=== PATIENT | female | born 1965 | race Caucasian/White ===

== ENCOUNTER 2016-07-26 17:56 | Emergency (ER) | payer MEDICAID ==
--- NOTE | 2016-07-26 18:50 | Emergency Department Record ---
History of Present Illness - General Stated complaint: MOUTH PAIN Time Seen by Provider: 07/26/16 18:37 Source: Patient Mode of Arrival: Ambulatory Limitations: No limitations - History of Present Illness Initial comments: 50 yo female presents to ED with a CC of dental pain to the left upper jaw for the past several days. Patient reports that the tooth is cracked, and she is scheduled for extraction on char 14. Patient reports "I just need something for pain to get me through tonight". Patient denies gingival swelling or recent injury/trauma. MD complaint: Tooth pain Onset/Timin -: Days(s) Location: Tooth # 1 - dental pain/fracture Severity: Moderate Quality: Aching Consistency: Constant Improves with: None Context-Epistaxis: Recent surgery/procedure, History of similar Context- Dental: History of dental caries - Related Data Home Medications Medication Instructions Recorded Confirmed Last Taken Melatonin/Pyridoxine HCl (B6) 3 mg PO QHS tab 03/21/15 04/26/16 04/26/16 [Melatonin 5 mg Tablet] Insulin Regular, Human [Humulin R] 100 unit SQ BID 01/29/16 04/26/16 04/26/16 Previous Rx's Medication Instructions Recorded Blood-Glucose Meter [Contour Link] 1 each QIDACHS #1 kit 12/04/14 Benzonatate [Tessalon] 1 cap PO Q8H PRN #15 cap 04/26/16 Ondansetron [Zofran Odt] 4 mg SL .Q4-6H PRN #12 tab.rapdis 04/26/16 Allergies Allergy/AdvReac Type Severity Reaction Status Date / Time No Known Drug Allergies Allergy Verified 04/26/16 14:26 Review of Systems Constitutional: Denies: Chills, Fever, Malaise, Night sweats Eyes: Denies: Eye discharge, Eye pain ENT: Reports: Dental pain. Denies: Congestion, Ear pain Respiratory: Denies: Cough, Dyspnea Cardiovascular: Denies: Chest pain, Dyspnea on exertion Endocrine: Denies: Fatigue, Heat or cold intolerance Gastrointestinal: Denies: Abdominal pain, Nausea, Vomiting Genitourinary: Denies: Incontinence, Retention Musculoskeletal: Denies: Arthralgia, Back pain Skin: Denies: Bruising, Change in color Neurological: Denies: Abnormal gait, Headache Psychiatric: Denies: Anxiety Hematological/Lymphatic: Denies: Anemia, Blood Clots Past Medical History - SOCIAL HISTORY Smoking Status: Former smoker Drug Use: None - RESPIRATORY Hx Respiratory Disorders: Yes Hx Bronchitis: Yes 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 - CARDIOVASCULAR Hx Cardio Disorders: Yes Hx Hypertension: Yes - NEURO Hx Neuro Disorders: Yes Hx Dizziness: Yes Hx Headaches: Yes Hx Seizures: Yes Comment:: concussion, [place] Palsy - GI Hx GI Disorders: Yes Hx Reflux: Yes Hx Liver Disease: Yes ("cirrhosis") Comment:: stewart's esophagus - Hx Genitourinary Disorders: Yes Hx Bladder Problem: Yes (stress inc.) - ENDOCRINE Hx Endocrine Disorders: Yes Hx Diabetes: Yes Hx Thyroid Disease: No - MUSCULOSKELETAL Hx Musculoskeletal Disorders: Yes Hx Arthritis: Yes (osteo) Comment:: sarcoidosis - PSYCH Hx Psych Problems: Yes Hx Anxiety: Yes Hx Depression: Yes Comment:: bi polar - HEMATOLOGY/ONCOLOGY Hx Hematology/Oncology Disorders: Yes Hx Cancer: Yes (Uterine Cancer) Hx Chemotherapy: No Hx Radiation Therapy: No Family Medical History Hx Alcohol Use: Father, Mother, Brother/Sister Hx Anxiety: Mother Hx Cancer: Grandparents Hx Depression: Father, Mother, Brother/Sister, Grandparents Hx Diabetes: Father, Grandparents Hx Heart Disease: Father Hx HTN: Father Hx Liver Disease: Father Physical Exam - General General Appearance: Alert, Oriented x3, Cooperative, No acute distress Limitations: No limitations - Head Head exam: Atraumatic, Normocephalic, Normal inspection Head exam detail: negative: Abrasion, Contusion, Acosta's sign, General tenderness, Hematoma, Laceration - Eye Eye exam: Normal appearance. negative: Conjunctival injection, Periorbital swelling, Periorbital tenderness, Scleral icterus - ENT Ear exam: negative: Auricular hematoma, Auricular trauma Nasal Exam: negative: Active bleeding, Discharge, Dried blood, Foreign body, Sinus tenderness Mouth exam: negative: Drooling, Laceration, Muffled voice, Tongue elevation Teeth exam: Dental caries, Dental tenderness #. negative: Gingival enlargement Throat exam: negative: R peritonsillar mass, L peritonsillar mass Image of Mouth/Teeth: 1 - TTP on examination, posterior fracture present? - Neck Neck exam: Normal inspection. negative: Meningismus, Tenderness - Respiratory Respiratory exam: Normal lung sounds bilaterally. negative: Respiratory distress, Rhonchi, Stridor, Wheezes - Cardiovascular Cardiovascular Exam: Regular rate, Normal rhythm, Normal heart sounds - GI/Abdominal GI/Abdominal exam: Soft. negative: Organomegaly, Rebound, Rigid, Tenderness - Rectal Rectal exam: Deferred - exam: Deferred - Extremities Extremities exam: Normal inspection. negative: Pedal edema, Tenderness - Back Back exam: Denies: CVA tenderness (R), CVA tenderness (L) - Neurological Neurological exam: Alert, Normal gait, Oriented X3 - Psychiatric Psychiatric exam: Normal affect, Normal mood - Skin Skin exam: Normal color. negative: Abrasion Type of lesion: negative: abrasion Course Vital Signs 07/26/16 18:35 Temperature 98.5 F Pulse Rate [ 95 H Pulse Ox Probe] Respiratory 26 H Rate Blood Pressure 108/68 [Left Arm] Pulse Ox 98 Procedures - Nerve Block Consent Obtained: Verbal consent Time Out Performed: Yes Local Anesthetic Used: Lidocaine 1% Amount of anesthesia used: 2 Side: Right Intraoral Nerve Block: Supraperiosteal Procedure Successful: Yes Complications: None Patient Tolerated Procedure: Good Disposition Disposition: Discharge Clinical Impression: Dental caries Disposition: Home, Self-Care Condition: (2) Stable Instructions: Toothache (ED) Additional Instructions: Return to ED if your symptoms worsen or if you have any concerns. Follow-up with [facility] as scheduled July 29. Time of Disposition: 18:50
== END 2016-07-26 19:02 | disposition home or self-care (01) ==
LOC: ER 17:56
DX: K02.9 Dental caries, unspecified (principal)
CPT/HCPCS: 64400; 99283

== ENCOUNTER 2016-07-27 21:02 | Emergency (ER) | payer MEDICAID ==
--- NOTE | 2016-07-27 22:01 | Emergency Department Record ---
History of Present Illness - General Chief complaint: Dental Stated complaint: tooth pain Time Seen by Provider: 07/27/16 21:55 Source: Patient Mode of Arrival: Ambulatory Limitations: No limitations - History of Present Illness Initial comments: 50 yo female returns to ED for re-evaluation of dental pain symptoms to the right upper dental region. Patient is requesting another dental nerve block. Patient reports that she is scheduled for dental extraction Wednesday, and is requesting some relief in the form a nerve block to assist until she can see her dentist. MD complaint: Tooth pain Onset/Timin -: Days(s) Location: Tooth # 1 - Dental pain Severity: Moderate Severity scale (1-10): 8 Quality: Aching Consistency: Constant Improves with: Rest Worsens with: Eating, Swallowing Context- Dental: History of dental caries, Poor dental care - Related Data Home Medications Medication Instructions Recorded Confirmed Last Taken Melatonin/Pyridoxine HCl (B6) 3 mg PO QHS tab 03/21/15 07/27/16 07/26/16 [Melatonin 5 mg Tablet] Insulin Regular, Human [Humulin R] 100 unit SQ BID 01/29/16 07/27/16 07/26/16 Previous Rx's Medication Instructions Recorded Blood-Glucose Meter [Contour Link] 1 each QIDACHS #1 kit 12/04/14 Benzonatate [Tessalon] 1 cap PO Q8H PRN #15 cap 04/26/16 Ondansetron [Zofran Odt] 4 mg SL .Q4-6H PRN #12 tab.rapdis 04/26/16 Allergies Allergy/AdvReac Type Severity Reaction Status Date / Time No Known Drug Allergies Allergy Verified 07/27/16 21:06 Travel Screening - Travel/Exposure Within Last 30 Days Have you traveled within the last 30 days?: No - Travel/Exposure Within Last Year Have you traveled outside the [place] in the last year?: No - Additonal Travel Details Have you been exposed to anyone with a communicable illness?: No - Travel Symptoms Symptom Screening: None Review of Systems Constitutional: Denies: Chills, Fever, Malaise, Night sweats Eyes: Denies: Eye discharge, Eye pain ENT: Reports: Dental pain. Denies: Congestion, Ear pain, Epistaxis Respiratory: Denies: Cough, Dyspnea Cardiovascular: Denies: Chest pain, Dyspnea on exertion Endocrine: Denies: Fatigue, Heat or cold intolerance Gastrointestinal: Denies: Abdominal pain, Nausea, Vomiting Genitourinary: Denies: Dysuria, Frequency Musculoskeletal: Denies: Arthralgia, Back pain Skin: Denies: Bruising, Change in color Neurological: Denies: Abnormal gait, Confusion, Headache, Seizure Psychiatric: Denies: Anxiety Hematological/Lymphatic: Denies: Anemia, Blood Clots Past Medical History - SOCIAL HISTORY Smoking Status: Current some day smoker Alcohol Use: None Drug Use: Heavy Drug Use Detail:: Marijuana - RESPIRATORY Hx Respiratory Disorders: Yes Hx Bronchitis: Yes 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 - CARDIOVASCULAR Hx Cardio Disorders: Yes Hx Hypertension: Yes - NEURO Hx Neuro Disorders: Yes Hx Dizziness: Yes Hx Headaches: Yes Hx Seizures: Yes Comment:: concussion, [place] Palsy - GI Hx GI Disorders: Yes Hx Reflux: Yes Hx Liver Disease: Yes ("cirrhosis") Comment:: stewart's esophagus - Hx Genitourinary Disorders: Yes Hx Bladder Problem: Yes (stress inc.) - ENDOCRINE Hx Endocrine Disorders: Yes Hx Diabetes: Yes Hx Thyroid Disease: No - MUSCULOSKELETAL Hx Musculoskeletal Disorders: Yes Hx Arthritis: Yes (osteo) Comment:: sarcoidosis - PSYCH Hx Psych Problems: Yes Hx Anxiety: Yes Hx Depression: Yes Comment:: bi polar - HEMATOLOGY/ONCOLOGY Hx Hematology/Oncology Disorders: Yes Hx Cancer: Yes (Uterine Cancer) Hx Chemotherapy: No Hx Radiation Therapy: No Family Medical History Any Significant Family History?: No Hx Alcohol Use: Father, Mother, Brother/Sister Hx Anxiety: Mother Hx Cancer: Grandparents Hx Depression: Father, Mother, Brother/Sister, Grandparents Hx Diabetes: Father, Grandparents Hx Heart Disease: Father Hx HTN: Father Hx Liver Disease: Father Physical Exam - General General Appearance: Alert, Oriented x3, Cooperative, No acute distress (talking on her mobile phone upon entering the room, well appearin in no acute distress) Limitations: No limitations - Head Head exam: Atraumatic, Normocephalic, Normal inspection Head exam detail: negative: Abrasion, Contusion, Acosta's sign, General tenderness, Hematoma, Laceration - Eye Eye exam: Normal appearance. negative: Conjunctival injection, Periorbital swelling, Periorbital tenderness, Scleral icterus - ENT Ear exam: negative: Auricular hematoma, Auricular trauma Nasal Exam: negative: Active bleeding, Discharge, Dried blood, Foreign body Mouth exam: negative: Drooling, Laceration, Muffled voice, Tongue elevation Teeth exam: Dental caries, Dental tenderness # Throat exam: negative: Tonsillar erythema, R peritonsillar mass, L peritonsillar mass Image of Mouth/Teeth: 1 - Dental tenderness on examination, no gingival STS to suggest abscess - Neck Neck exam: Normal inspection. negative: Meningismus, Tenderness - Respiratory Respiratory exam: Normal lung sounds bilaterally. negative: Rales, Respiratory distress, Rhonchi, Stridor - Cardiovascular Cardiovascular Exam: Regular rate, Normal rhythm, Normal heart sounds - GI/Abdominal GI/Abdominal exam: Soft. negative: Rebound, Rigid - Rectal Rectal exam: Deferred - exam: Deferred - Extremities Extremities exam: Normal inspection. negative: Calf tenderness, Pedal edema, Tenderness - Back Back exam: Denies: CVA tenderness (R), CVA tenderness (L) - Neurological Neurological exam: Alert, Normal gait, Oriented X3 - Psychiatric Psychiatric exam: Normal affect, Normal mood - Skin Skin exam: Normal color. negative: Abrasion Type of lesion: negative: abrasion Course Vital Signs 07/27/16 21:06 Pulse Rate 90 Respiratory 18 Rate Blood Pressure 127/81 Pulse Ox 98 - Reevaluation(s) Reevaluation #1: 07/27/16 21:59 Dental block performed, will re-evaluate in 10-15 minutes to determine efficacy. Reevaluation #2: 07/27/16 22:18 Patient reassessed and reports significant improvement in her dental pain symptoms, appears stable for discharge at this time. Disposition Disposition: Discharge Clinical Impression: Dental caries Disposition: Home, Self-Care Condition: (2) Stable Instructions: Dental Abscess (ED) Additional Instructions: Return to ED if your symptoms worsen or if you have any concerns. Follow-up with your dentist in 2 days as scheduled. Forms: Patient Portal Access Time of Disposition: 22:01
== END 2016-07-27 22:24 | disposition home or self-care (01) ==
LOC: ER 21:02
DX: K02.9 Dental caries, unspecified (principal)
CPT/HCPCS: 64400; 99283

== ENCOUNTER 2016-08-05 23:52 | Emergency (ER) | payer MEDICAID ==
--- NOTE | 2016-08-06 00:22 | Emergency Department Record ---
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 Patient reports right sided facial weakness and difficultly blinking that began around 5 hours ago. Patient denies weakness to the extremities, numbness, tingling, or difficulty ambulating. Patient denies slurred speech symptoms. Patient reports similar symptoms 2 years ago as well. Onset/Timin -: Hour(s) Location: Face Radiation: Non-Radiating Consistency: Constant Improves with: None Worsens with: None Associated Symptoms: Denies other symptoms - [place] Coma Scale Eye Response: (4) Open spontaneously Motor Response: (6) Obeys commands Verbal Response: (5) Oriented [place] Total: 15 - Related Data Home Medications Medication Instructions Recorded Confirmed Last Taken Melatonin/Pyridoxine HCl (B6) 3 mg PO QHS tab 03/21/15 08/06/16 07/26/16 [Melatonin 5 mg Tablet] Insulin Regular, Human [Humulin R] 100 unit SQ QAM 01/29/16 08/06/16 07/26/16 Amoxicillin [Amoxicillin] 500 mg PO ASDIR 08/06/16 08/06/16 Unknown Insulin Regular, Human [Humulin R] 50 unit SQ QPM 08/06/16 08/06/16 Unknown Previous Rx's Medication Instructions Recorded Blood-Glucose Meter [Contour Link] 1 each QIDACHS #1 kit 12/04/14 Ondansetron [Zofran Odt] 4 mg SL .Q4-6H PRN #12 tab.rapdis 04/26/16 Prednisone [Prednisone 20Mg] 20 mg PO TID #20 tab 08/06/16 Allergies Allergy/AdvReac Type Severity Reaction Status Date / Time ibuprofen [From Motrin] AdvReac VOMITING Verified 08/06/16 00:02 Travel Screening - Travel/Exposure Within Last 30 Days Have you traveled within the last 30 days?: No - Travel/Exposure Within Last Year Have you traveled outside the [place] in the last year?: No - Additonal Travel Details Have you been exposed to anyone with a communicable illness?: No - Travel Symptoms Symptom Screening: None Review of Systems Constitutional: Denies: Chills, Fever, Malaise, Night sweats Eyes: Denies: Eye discharge, Eye pain ENT: Denies: Congestion, Ear pain, Epistaxis Respiratory: Denies: Cough, Dyspnea Cardiovascular: Denies: Chest pain, Dyspnea on exertion Endocrine: Denies: Fatigue, Heat or cold intolerance Gastrointestinal: Denies: Abdominal pain, Nausea, Vomiting Genitourinary: Denies: Incontinence, Retention Musculoskeletal: Denies: Arthralgia, Back pain Skin: Denies: Bruising, Change in color Neurological: Reports: Weakness (right face). 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 - CARDIOVASCULAR Hx Cardio Disorders: Yes Hx Hypertension: Yes - NEURO Hx Neuro Disorders: Yes Hx Dizziness: Yes Hx Headaches: Yes Hx Seizures: Yes Comment:: concussion, [place] Palsy - GI Hx GI Disorders: Yes Hx Reflux: Yes Hx Liver Disease: Yes ("cirrhosis") Comment:: stewart's esophagus - Hx Genitourinary Disorders: Yes Hx Bladder Problem: Yes (stress inc.) - ENDOCRINE Hx Endocrine Disorders: Yes Hx Diabetes: Yes Hx Thyroid Disease: No - MUSCULOSKELETAL Hx Musculoskeletal Disorders: Yes Hx Arthritis: Yes (osteo) Comment:: sarcoidosis - PSYCH Hx Psych Problems: Yes Hx Anxiety: Yes Hx Depression: Yes Comment:: bi polar - HEMATOLOGY/ONCOLOGY Hx Hematology/Oncology Disorders: Yes Hx Cancer: Yes (Uterine Cancer) Hx Chemotherapy: No Hx Radiation Therapy: No Family Medical History Any Significant Family History?: Yes Hx Alcohol Use: Father, Mother, Brother/Sister Hx Anxiety: Mother Hx Cancer: Grandparents Hx Depression: Father, Mother, Brother/Sister, Grandparents Hx Diabetes: Father, Grandparents Hx Heart Disease: Father Hx HTN: Father Hx Liver Disease: Father Physical Exam - General General Appearance: Alert, Oriented x3, Cooperative, No acute distress Limitations: No limitations - Head Head exam: Atraumatic, Normocephalic, Normal inspection Head exam detail: negative: Abrasion, Contusion, Acosta's sign, General tenderness, Hematoma, Laceration - Eye Eye exam: Normal appearance. negative: Conjunctival injection, Periorbital swelling, Periorbital tenderness, Scleral icterus - ENT Ear exam: negative: Auricular hematoma, Auricular trauma Nasal Exam: negative: Active bleeding, Discharge, Dried blood, Foreign body Mouth exam: negative: Drooling, Laceration, Muffled voice, Tongue elevation - Neck Neck exam: Normal inspection. negative: Meningismus, Tenderness - Respiratory Respiratory exam: Normal lung sounds bilaterally. negative: Rales, Respiratory distress, Rhonchi, Stridor - Cardiovascular Cardiovascular Exam: Regular rate, Normal rhythm, Normal heart sounds - GI/Abdominal GI/Abdominal exam: Soft. negative: Rebound, Rigid, Tenderness - Rectal Rectal exam: Deferred - exam: Deferred - Extremities Extremities exam: Normal inspection. negative: Calf tenderness, Pedal edema, Tenderness - Back Back exam: Denies: CVA tenderness (R), CVA tenderness (L) - Neurological Neurological exam: Alert, Normal gait, Oriented X3, Other (Mild facial paralysis of the right face involving the forehead) - Psychiatric Psychiatric exam: Normal affect, Normal mood - Skin Skin exam: Normal color. negative: Abrasion Type of lesion: negative: abrasion Course Vital Signs 08/05/16 23:54 Temperature 97.8 F Pulse Rate 83 Respiratory 20 Rate Blood Pressure 126/76 Pulse Ox 98 - Reevaluation(s) Reevaluation #1: 08/06/16 00:17 Patient seen and examined, reveals moderate right sided facial paralysis involving the patient's forehead. Interactive Art Director strength 5/5 bilaterally, plantar flexion/dorsiflexion 5/5 and is symmetric bilaterally, no drift on examination. 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 Will prescribe Prednisone for treatment of her symptoms with instructions for follow-up. Disposition Disposition: Discharge Clinical Impression: Newsome's palsy Disposition: Home, Self-Care Condition: (2) Stable Instructions: Newsome Palsy (ED) Additional Instructions: Return to ED if your symptoms worsen or if you have any concerns. Prednisone as directed. Follow-up with your family doctor in 3-5 days as directed. Prescriptions: Prednisone [Prednisone 20Mg] 20 mg PO TID #20 tab Forms: Patient Portal Access Time of Disposition: 00:23
[2016-08-06] MEDS ORDERED: PREDNISONE 20 MG TAB PO ONE (00:23)
== END 2016-08-06 00:35 | disposition home or self-care (01) ==
LOC: ER 23:52
DX: G51.0 Bell's palsy (principal)
CPT/HCPCS: 99282; J7512

== ENCOUNTER 2016-12-26 11:42 | Emergency (ER) | payer MEDICAID ==
--- NOTE | 2016-12-26 11:56 | Emergency Department Record ---
History of Present Illness - General Chief complaint: ENT Stated complaint: SORE THROAT,CHEST TIGHTNESS Time Seen by Provider: 12/26/16 11:55 Source: Patient Mode of Arrival: Ambulatory - History of Present Illness Initial comments: The patient awakened with a sore throat today. She has not been feeling well and thinks that her MRSA is returning beause she has a few spots on her breast, axilla, and groin. She would like clindamycin for this as this is what resolvedf it last time when she had a abscess on her leg with MRSA. She enies abscesses today, no f, cough, rashes. Onset/Timin -: Days(s) Severity: Moderate Severity scale (1-10): 7 Quality: Aching Consistency: Constant Improves with: None Worsens with: None Associated Symptoms: Sore throat - Related Data Home Medications Medication Instructions Recorded Confirmed Last Taken Dicyclomine HCl 20 mg PO TID 12/26/16 12/26/16 Unknown Previous Rx's Medication Instructions Recorded Clindamycin HCl 450 mg PO TID #90 capsule 12/26/16 Allergies Allergy/AdvReac Type Severity Reaction Status Date / Time ibuprofen [From Motrin] AdvReac VOMITING Verified 08/06/16 00:02 Travel Screening - Travel/Exposure Within Last 30 Days Have you traveled within the last 30 days?: No Review of Systems Reviewed: No additional complaints except as noted below Constitutional: Reports: As per HPI. Denies: Chills, Fever, Malaise, Night sweats, Weakness, Weight change Eyes: Reports: As per HPI. Denies: Eye discharge, Eye pain, Photophobia, Vision change ENT: Reports: As per HPI. Denies: Congestion, Dental pain, Ear pain, Epistaxis , Hearing loss, Throat pain Respiratory: Reports: As per HPI. Denies: Cough, Dyspnea, Hemoptysis, Stridor, Wheezes Cardiovascular: Reports: As per HPI. Denies: Arrhythmia, Chest pain, Dyspnea on exertion, Edema, Murmurs, Orthopnea, Palpitations, Paroxysmal nocturnal dyspnea, Rheumatic Fever, Syncope Endocrine: Reports: As per HPI. Denies: Fatigue, Heat or cold intolerance, Polydipsia, Polyuria Gastrointestinal: Reports: As per HPI. Denies: Abdominal pain, Constipation, Diarrhea, Hematemesis, Hematochezia, Melena, Nausea, Vomiting Genitourinary: Reports: As per HPI. Denies: Abnormal menses, Discharge, Dyspareunia, Dysuria, Frequency, Hematuria, Incontinence, Retention, Urgency Musculoskeletal: Reports: As per HPI. Denies: Arthralgia, Back pain, Gout, Joint swelling, Myalgia, Neck pain Skin: Reports: As per HPI. Denies: Bruising, Change in color, Change in hair/ nails, Lesions, Pruritus, Rash Neurological: Reports: As per HPI. Denies: Abnormal gait, Confusion, Headache, Numbness, Paresthesias, Seizure, Tingling, Tremors, Vertigo, Weakness Psychiatric: Reports: As per HPI. Denies: Anxiety, Auditory hallucinations, Depression, Homicidal thoughts, Suicidal thoughts, Visual hallucinations Hematological/Lymphatic: Reports: As per HPI. 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 - CARDIOVASCULAR Hx Cardio Disorders: Yes Hx Hypertension: Yes - NEURO Hx Neuro Disorders: Yes Hx Dizziness: Yes Hx Headaches: Yes Hx Seizures: Yes Comment:: concussion, [place] Palsy - GI Hx GI Disorders: Yes Hx Reflux: Yes Hx Liver Disease: Yes ("cirrhosis") Comment:: stewart's esophagus - Hx Genitourinary Disorders: Yes Hx Bladder Problem: Yes (stress inc.) - ENDOCRINE Hx Endocrine Disorders: Yes Hx Diabetes: Yes Hx Thyroid Disease: No - MUSCULOSKELETAL Hx Musculoskeletal Disorders: Yes Hx Arthritis: Yes (osteo) Comment:: sarcoidosis - PSYCH Hx Psych Problems: Yes Hx Anxiety: Yes Hx Depression: Yes Comment:: bi polar - HEMATOLOGY/ONCOLOGY Hx Hematology/Oncology Disorders: Yes Hx Cancer: Yes (Uterine Cancer) Hx Chemotherapy: No Hx Radiation Therapy: No Family Medical History Any Significant Family History?: Yes Hx Alcohol Use: Father, Mother, Brother/Sister Hx Anxiety: Mother Hx Cancer: Grandparents Hx Depression: Father, Mother, Brother/Sister, Grandparents Hx Diabetes: Father, Grandparents Hx Heart Disease: Father Hx HTN: Father Hx Liver Disease: Father Physical Exam - General General Appearance: Alert, Oriented x3, Cooperative, No acute distress (obese) - Head Head exam: Normal inspection - Eye Eye exam: Normal appearance, PERRL Pupils: Normal accommodation - ENT ENT exam: Normal exam, Mucous membranes moist, Normal external ear exam, Normal orophraynx, TM's normal bilaterally Ear exam: Normal external inspection. negative: External canal tenderness Nasal Exam: Normal inspection. negative: Discharge, Sinus tenderness Mouth exam: Normal external inspection, Tongue normal Teeth exam: Normal inspection. negative: Dental caries Throat exam: Normal inspection. negative: Tonsillar erythema, Tonsillar exudate - Neck Neck exam: Normal inspection, Full ROM. negative: Tenderness - Respiratory Respiratory exam: Normal lung sounds bilaterally, Chest wall tenderness (chest wall with two lesions, nonfluctuant over pectoral region and over axillary region, both on right side. Also a few to groin.). negative: Respiratory distress - Cardiovascular Cardiovascular Exam: Regular rate, Normal rhythm, Normal heart sounds - GI/Abdominal GI/Abdominal exam: Soft, Normal bowel sounds. negative: Tenderness - Rectal Rectal exam: Deferred - exam: Deferred - Extremities Extremities exam: Normal inspection, Full ROM, Normal capillary refill. negative: Calf tenderness, Pedal edema, Tenderness - Back Back exam: Reports: Normal inspection, Full ROM. Denies: Muscle spasm, Rash noted, Tenderness - Neurological Neurological exam: Alert, Normal gait, Oriented X3, Reflexes normal - Psychiatric Psychiatric exam: Normal affect, Normal mood - Skin Skin exam: Dry, Intact, Normal color, Warm Course Vital Signs 12/26/16 11:50 Temperature 97.5 F L Pulse Rate 83 Respiratory 20 Rate Blood Pressure 138/86 Pulse Ox 97 - Reevaluation(s) Reevaluation #1: 12/26/16 12:30 strep returned negative. Medical Decision Making - Management Options MDM Management: No Additional Work-up Planned Disposition Disposition: Discharge Clinical Impression: MRSA (methicillin resistant Staphylococcus aureus) carrier Pharyngitis Qualifiers: Pharyngitis/tonsillitis etiology: unspecified etiology Qualified Code(s): J02.9 - Acute pharyngitis, unspecified Disposition: Home, Self-Care Condition: (1) Good Instructions: MRSA (Methicillin-Resistant Staphylococcus Aureus) (ED), Pharyngitis (ED) Additional Instructions: Take antibiotics as directed until gone. Recheck with PCP 10 days. Prescriptions: Clindamycin HCl 450 mg PO TID #90 capsule Forms: Patient Portal Access Quality - Quality Measures Quality Measures: N/A - Blood Pressure Screening Does Patient Have Any of the Following: No Blood Pressure Classification: Pre-Hypertensive BP Reading Systolic Measurement: 138 Diastolic Measurement: 86 Screening for High Blood Pressure: Patient Exclusion, Hx of HTN [G9744]
== END 2016-12-26 12:44 | disposition home or self-care (01) ==
LOC: ER 11:42
DX: J02.9 Acute pharyngitis, unspecified (principal); Z22.322 Carrier or suspected carrier of Methicillin resistant Staphylococcus aureus; F17.210 Nicotine dependence, cigarettes, uncomplicated
CPT/HCPCS: 87880; 99282

== ENCOUNTER 2017-04-07 13:09 | Emergency (ER) | payer MEDICAID ==
[2017-04-07 14:11] LABS: INFLUENZA A NEGATIVE (NEGATIVE); INFLUENZA B NEGATIVE (NEGATIVE)
[2017-04-07] MEDS ORDERED: ONDANSETRON HCL IV 4 MG/2 ML VIAL IV ONE (14:38)
[2017-04-07] MEDS ORDERED: 0.9 % SODIUM CHLORIDE 1,000 ML BAG IV ONE (14:38)
--- NOTE | 2017-04-07 14:40 | Emergency Department Record ---
History of Present Illness - General Chief complaint: Pain Stated complaint: BODY ACHES,HEADACHE,VOMITING,DIARRHEA Time Seen by Provider: 04/07/17 14:10 Source: Patient, RN notes reviewed Mode of Arrival: Ambulatory - History of Present Illness Initial comments: vomiting times 2 and diarrhea times three today and this started about 3 days ago. yesterday diarrhea times 4 and vomiting times 2. Body aches, Onset/Timin -: Days(s) Quality: Aching Consistency: Constant Improves with: Nothing Worsens with: Exertion Associated Symptoms: Other - Related Data Allergies Allergy/AdvReac Type Severity Reaction Status Date / Time ibuprofen [From Motrin] AdvReac VOMITING Verified 04/07/17 13:37 Travel Screening - Travel/Exposure Within Last 30 Days Have you traveled within the last 30 days?: No - Travel/Exposure Within Last Year Have you traveled outside the [place] in the last year?: No - Additonal Travel Details Have you been exposed to anyone with a communicable illness?: No - Travel Symptoms Symptom Screening: None Review of Systems Reviewed: No additional complaints except as noted below Constitutional: Reports: As per HPI. Denies: Chills, Fever, Malaise, Night sweats, Weakness, Weight change Eyes: Reports: As per HPI. Denies: Eye discharge, Eye pain, Photophobia, Vision change ENT: Reports: As per HPI. Denies: Congestion, Dental pain, Ear pain, Epistaxis , Hearing loss, Throat pain Respiratory: Reports: As per HPI. Denies: Cough, Dyspnea, Hemoptysis, Stridor, Wheezes Cardiovascular: Reports: As per HPI. Denies: Arrhythmia, Chest pain, Dyspnea on exertion, Edema, Murmurs, Orthopnea, Palpitations, Paroxysmal nocturnal dyspnea, Rheumatic Fever, Syncope Endocrine: Reports: As per HPI. Denies: Fatigue, Heat or cold intolerance, Polydipsia, Polyuria Gastrointestinal: Reports: As per HPI, Diarrhea, Vomiting. Denies: Abdominal pain, Constipation, Hematemesis, Hematochezia, Melena, Nausea Genitourinary: Reports: As per HPI. Denies: Abnormal menses, Discharge, Dyspareunia, Dysuria, Frequency, Hematuria, Incontinence, Retention, Urgency Musculoskeletal: Reports: As per HPI. Denies: Arthralgia, Back pain, Gout, Joint swelling, Myalgia, Neck pain Skin: Reports: As per HPI. Denies: Bruising, Change in color, Change in hair/ nails, Lesions, Pruritus, Rash Neurological: Reports: As per HPI. Denies: Abnormal gait, Confusion, Headache, Numbness, Paresthesias, Seizure, Tingling, Tremors, Vertigo, Weakness Psychiatric: Reports: As per HPI. Denies: Anxiety, Auditory hallucinations, Depression, Homicidal thoughts, Suicidal thoughts, Visual hallucinations Hematological/Lymphatic: Reports: As per HPI. 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 - CARDIOVASCULAR Hx Cardio Disorders: Yes Hx Hypertension: Yes - NEURO Hx Neuro Disorders: Yes Hx Dizziness: Yes Hx Headaches: Yes Hx Seizures: Yes Comment:: concussion, [place] Palsy - GI Hx GI Disorders: Yes Hx Reflux: Yes Hx Liver Disease: Yes ("cirrhosis") Comment:: stewart's esophagus - Hx Genitourinary Disorders: Yes Hx Bladder Problem: Yes (stress inc.) - ENDOCRINE Hx Endocrine Disorders: Yes Hx Diabetes: Yes Hx Thyroid Disease: No - MUSCULOSKELETAL Hx Musculoskeletal Disorders: Yes Hx Arthritis: Yes (osteo) Comment:: sarcoidosis - PSYCH Hx Psych Problems: Yes Hx Anxiety: Yes Hx Depression: Yes Comment:: bi polar - HEMATOLOGY/ONCOLOGY Hx Hematology/Oncology Disorders: Yes Hx Cancer: Yes (Uterine Cancer) Hx Chemotherapy: No Hx Radiation Therapy: No Family Medical History Any Significant Family History?: Yes Hx Alcohol Use: Father, Mother, Brother/Sister Hx Anxiety: Mother Hx Cancer: Grandparents Hx Depression: Father, Mother, Brother/Sister, Grandparents Hx Diabetes: Father, Grandparents Hx Heart Disease: Father Hx HTN: Father Hx Liver Disease: Father Physical Exam - General General Appearance: Alert, Oriented x3, Cooperative, No acute distress - Head Head exam: Normal inspection - Eye Eye exam: Normal appearance, PERRL Pupils: Normal accommodation - ENT ENT exam: Normal exam, Mucous membranes moist, Normal external ear exam, Normal orophraynx, TM's normal bilaterally Ear exam: Normal external inspection. negative: External canal tenderness Nasal Exam: Normal inspection. negative: Discharge, Sinus tenderness Mouth exam: Normal external inspection, Tongue normal Teeth exam: Normal inspection. negative: Dental caries Throat exam: Normal inspection. negative: Tonsillar erythema, Tonsillar exudate - Neck Neck exam: Normal inspection, Full ROM. negative: Tenderness - Respiratory Respiratory exam: Normal lung sounds bilaterally. negative: Respiratory distress - Cardiovascular Cardiovascular Exam: Regular rate, Normal rhythm, Normal heart sounds - GI/Abdominal GI/Abdominal exam: Soft, Normal bowel sounds. negative: Tenderness - Rectal Rectal exam: Deferred - exam: Deferred - Extremities Extremities exam: Normal inspection, Full ROM, Normal capillary refill. negative: Tenderness - Back Back exam: Reports: Normal inspection, Full ROM. Denies: Muscle spasm, Rash noted, Tenderness - Neurological Neurological exam: Alert, Normal gait, Oriented X3, Reflexes normal - Psychiatric Psychiatric exam: Normal affect, Normal mood - Skin Skin exam: Dry, Intact, Normal color, Warm Course Vital Signs 04/07/17 13:38 Temperature 98.2 F Pulse Rate 94 H Respiratory 20 Rate Blood Pressure 129/81 Pulse Ox 97 pain worse right upper quad and will do US of gall bladder Medical Decision Making - Data Complexity MDM Data: Labs Ordered and/or Reviewed (liver enzymes up ), X-Ray Ordered and/ or Reviewed (US of gall bladder no gall stones, fatty liver ) - Lab Data Result diagrams: 04/07/17 14:50 04/07/17 14:50 Lab Results 04/07/17 Range/Units 13:39 Influenza Type A Ag Negative (NEGATIVE) Influenza Type B Ag Negative (NEGATIVE) Disposition Clinical Impression: Gastroenteritis, Fatty liver Disposition: Home, Self-Care Condition: (1) Good Instructions: Gastroenteritis (ED) Additional Instructions: follow up with primary DrPoncho in 2-5 days clear liquids today and gradually increase diet Forms: Patient Portal Access Time of Disposition: 18:12 Quality - Quality Measures Quality Measures: N/A - Blood Pressure Screening Does Patient Have Any of the Following: No Blood Pressure Classification: Pre-Hypertensive BP Reading Systolic Measurement: 129 Diastolic Measurement: 81 Screening for High Blood Pressure: < Pre-Hypertensive BP, F/U Documented > [ G8950] Pre-Hypertensive Follow-up Interventions: Referral to alternative/primary care provider.
[2017-04-07 15:01] LABS: BASO % 0.3 % (0-6); EOS % 5.1 % (0-6); HEMATOCRIT 38.6 % (35.0-47.0); HEMOGLOBIN 12.2 gm/dl (11.6-16.0); LYMPH % 24.5 % (16-45); MEAN CELL VOLUME 79.6 fl (81-97); MEAN CORPUSCULAR HEMOGLOBIN 25.2 pg (27-33); MEAN CORPUSCULAR HGB CONC 31.6 g/dl (32-36); MEAN PLATELET VOLUME 10.6 fl (7.4-10.4); MONO % 6.1 % (0-9); PLATELET COUNT 282 K/uL (130-400); RED BLOOD COUNT 4.85 M/uL (3.80-5.40); RED CELL DISTRIBUTION WIDTH 15.3 % (11.5-14.5); WHITE BLOOD COUNT W/O DIFF 7.4 K/uL (4.2-12.2)
[2017-04-07 15:11] LABS: BLOOD UREA NITROGEN 16 mg/dL (6-20); CREATININE 0.5 mg/dL (0.5-0.9); EST GLOMERULAR FILTRATION RATE > 60 mL/min
[2017-04-07 15:12] LABS: TOTAL PROTEIN 7.2 g/dL (6.6-8.7)
[2017-04-07 15:14] LABS: GLUCOSE,RANDOM 241 mg/dL (74-109)
[2017-04-07 15:16] LABS: ALBUMIN 3.8 g/dL (4.0-5.0); ALT/SGPT 213 U/L (<33); AST/SGOT 145 U/L (10.0-35.0)
[2017-04-07 15:17] LABS: ALKALINE PHOSPHATASE 126 U/L (35-104); LIPASE 64 U/L (13-60)
[2017-04-07 15:19] LABS: BILIRUBIN,DIRECT < 0.2 mg/dL (0-0.3)
--- NOTE | 2017-04-09 07:05 | ULTRASOUND REPORT ---
DATE: 04/07/2017 at 1654. EXAM: ULTRASOUND OF THE ABDOMEN, COMPLETE. HISTORY: Right upper quadrant pain. Elevated liver enzymes. TECHNIQUE: Routine ultrasound examination of the abdomen is performed. COMPARISON: CT of the chest with contrast dated 09/30/2016. FINDINGS: The pancreatic tail is obscured by overlying bowel gas. The remainder of the pancreas is visualized and is without focal abnormality. The abdominal aorta is without aneurysmal dilatation, and the intrahepatic inferior vena cava is patent. The liver appears mildly echogenic and coarsened in echotexture throughout. This is most commonly seen with steatosis but can also be seen with hepatitis and cirrhosis. No definite hepatic mass. No intra- or extrahepatic biliary ductal dilatation is seen with the common hepatic duct measuring 4.5 mm. The gallbladder is normal in appearance. The spleen is not enlarged and is homogeneous in echotexture. Screening evaluation of the kidneys does not demonstrate hydronephrosis nor mass with the right kidney measuring 12 cm in length and the left kidney measuring 14.1 cm in length. IMPRESSION: 1. THE LIVER IS ECHOGENIC AND COARSENED IN ECHOTEXTURE THROUGHOUT. THIS IS MOST COMMONLY SEEN WITH STEATOSIS BUT CAN ALSO BE SEEN WITH HEPATITIS AND CIRRHOSIS. 2. NO OTHER ABNORMALITY IS IDENTIFIED. JOB NUMBER: [id number] [facility]
== END 2017-04-07 18:20 | disposition home or self-care (01) ==
LOC: ER 13:09
DX: K52.9 Noninfective gastroenteritis and colitis, unspecified (principal); R11.11 Vomiting without nausea; K76.0 Fatty (change of) liver, not elsewhere classified; I10 Essential (primary) hypertension; F17.210 Nicotine dependence, cigarettes, uncomplicated
CPT/HCPCS: 76700; 80048; 80076; 83690; 85025; 87400; 96374; 99284; J2405; J7030

== ENCOUNTER 2017-09-13 00:48 | Emergency (ER) | payer MEDICAID ==
[2017-09-13] MEDS ORDERED: IPRATROPIUM/ALBUTEROL (0.5MG/3MG) NEB INH ONE (01:07)
[2017-09-13] MEDS ORDERED: METHYLPREDNISOLONE PF 125MG/VIAL IVP ONE (01:07)
[2017-09-13 01:23] LABS: BASO % 0.2 % (0-6); EOS % 5.2 % (0-6); GRAN % 63.5 % (47-80); HEMATOCRIT 39.8 % (35.0-47.0); HEMOGLOBIN 12.7 gm/dl (11.6-16.0); LYMPH % 24.1 % (16-45); MEAN CELL VOLUME 80.2 fl (81-97); MEAN CORPUSCULAR HEMOGLOBIN 25.6 pg (27-33); MEAN CORPUSCULAR HGB CONC 31.9 g/dl (32-36); MEAN PLATELET VOLUME 9.9 fl (7.4-10.4); PLATELET COUNT 337 K/uL (130-400); RED BLOOD COUNT 4.96 M/uL (3.80-5.40); RED CELL DISTRIBUTION WIDTH 15.5 % (11.5-14.5); WHITE BLOOD COUNT W/O DIFF 9.1 K/uL (4.2-12.2)
[2017-09-13 01:34] LABS: BLOOD UREA NITROGEN 16 mg/dL (6-20); CREATININE 0.7 mg/dL (0.5-0.9); EST GLOMERULAR FILTRATION RATE > 60 mL/min
--- NOTE | 2017-09-13 01:36 | Emergency Department Record ---
History of Present Illness - General Chief Complaint: Shortness of breath Stated Complaint: TROUBLE BREATHING Time Seen by Provider: 09/13/17 00:54 Source: Patient Mode of Arrival: Ambulatory Limitations: No limitations - History of Present Illness Initial Comments: pt feels sob and like something is draining down the back of her throat. she is coughing and gagging. no fever, no productivity, no leg pain MD Complaint: Shortness of breath Onset/Timin -: Days(s) Consistency: Intermittent Worsens With: Coughing, Other Associated Symptoms: Cough, Nausea/vomiting Treatments Prior to Arrival: Other Treatment Prior to Arrival Comment:: niru 1899 - Related Data Home Oxygen Therapy: No Allergies Allergy/AdvReac Type Severity Reaction Status Date / Time ibuprofen [From Motrin] AdvReac VOMITING Verified 04/07/17 13:37 Travel Screening - Travel/Exposure Within Last 30 Days Have you traveled within the last 30 days?: No - Travel Symptoms Symptom Screening: Stomach Pain Review of Systems Reviewed: No additional complaints except as noted below Constitutional: Reports: As per HPI. Denies: Chills, Fever, Malaise, Night sweats, Weakness, Weight change Eyes: Reports: As per HPI. Denies: Eye discharge, Eye pain, Photophobia, Vision change ENT: Reports: As per HPI. Denies: Congestion, Dental pain, Ear pain, Epistaxis , Hearing loss, Throat pain Respiratory: Reports: As per HPI. Denies: Cough, Dyspnea, Hemoptysis, Stridor, Wheezes Cardiovascular: Reports: As per HPI. Denies: Arrhythmia, Chest pain, Dyspnea on exertion, Edema, Murmurs, Orthopnea, Palpitations, Paroxysmal nocturnal dyspnea, Rheumatic Fever, Syncope Endocrine: Reports: As per HPI. Denies: Fatigue, Heat or cold intolerance, Polydipsia, Polyuria Gastrointestinal: Reports: As per HPI. Denies: Abdominal pain, Constipation, Diarrhea, Hematemesis, Hematochezia, Melena, Nausea, Vomiting Genitourinary: Reports: As per HPI. Denies: Abnormal menses, Discharge, Dyspareunia, Dysuria, Frequency, Hematuria, Incontinence, Retention, Urgency Musculoskeletal: Reports: As per HPI. Denies: Arthralgia, Back pain, Gout, Joint swelling, Myalgia, Neck pain Skin: Reports: As per HPI. Denies: Bruising, Change in color, Change in hair/ nails, Lesions, Pruritus, Rash Neurological: Reports: As per HPI. Denies: Abnormal gait, Confusion, Headache, Numbness, Paresthesias, Seizure, Tingling, Tremors, Vertigo, Weakness Psychiatric: Reports: As per HPI. Denies: Anxiety, Auditory hallucinations, Depression, Homicidal thoughts, Suicidal thoughts, Visual hallucinations Hematological/Lymphatic: Reports: As per HPI. 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 - CARDIOVASCULAR Hx Cardio Disorders: Yes Hx Hypertension: Yes - NEURO Hx Neuro Disorders: Yes Hx Dizziness: Yes Hx Headaches: Yes Hx Seizures: Yes Comment:: concussion, [place] Palsy - GI Hx GI Disorders: Yes Hx Reflux: Yes Hx Liver Disease: Yes ("cirrhosis") Comment:: stewart's esophagus - Hx Genitourinary Disorders: Yes Hx Bladder Problem: Yes (stress inc.) - ENDOCRINE Hx Endocrine Disorders: Yes Hx Diabetes: Yes Hx Thyroid Disease: No - MUSCULOSKELETAL Hx Musculoskeletal Disorders: Yes Hx Arthritis: Yes (osteo) Comment:: sarcoidosis - PSYCH Hx Psych Problems: Yes Hx Anxiety: Yes Hx Depression: Yes Comment:: bi polar - HEMATOLOGY/ONCOLOGY Hx Hematology/Oncology Disorders: Yes Hx Cancer: Yes (Uterine Cancer) Hx Chemotherapy: No Hx Radiation Therapy: No Family Medical History Any Significant Family History?: Yes Hx Alcohol Use: Father, Mother, Brother/Sister Hx Anxiety: Mother Hx Cancer: Grandparents Hx Depression: Father, Mother, Brother/Sister, Grandparents Hx Diabetes: Father, Grandparents Hx Heart Disease: Father Hx HTN: Father Hx Liver Disease: Father Physical Exam - General General Appearance: Alert, Oriented x3, Cooperative, Mild distress - Head Head exam: Normal inspection - Eye Eye exam: Normal appearance, PERRL, EOMI Pupils: Normal accommodation - ENT ENT exam: Normal exam, Mucous membranes moist, Normal external ear exam, Normal orophraynx Ear exam: Normal external inspection. negative: External canal tenderness Nasal Exam: Normal inspection. negative: Discharge, Sinus tenderness Mouth exam: Normal external inspection, Tongue normal Teeth exam: Normal inspection. negative: Dental caries Throat exam: Normal inspection. negative: Tonsillar erythema, Tonsillar exudate - Neck Neck exam: Normal inspection, Full ROM. negative: Tenderness - Respiratory Respiratory exam: Normal lung sounds bilaterally. negative: Respiratory distress - Cardiovascular Cardiovascular Exam: Normal rhythm, Normal heart sounds, Tachycardia - GI/Abdominal GI/Abdominal exam: Soft, Normal bowel sounds. negative: Tenderness - Rectal Rectal exam: Deferred - exam: Deferred - Extremities Extremities exam: Normal inspection, Full ROM, Normal capillary refill. negative: Tenderness - Back Back exam: Reports: Normal inspection, Full ROM. Denies: Muscle spasm, Rash noted, Tenderness - Neurological Neurological exam: Alert, CN II-XII intact, Normal gait, Oriented X3 - Psychiatric Psychiatric exam: Normal affect, Normal mood - Skin Skin exam: Dry, Intact, Normal color, Warm Course Vital Signs 09/13/17 09/13/17 00:51 01:20 Temperature 98.6 F Pulse Rate 95 H Pulse Rate [ 108 H Pulse Ox Probe] Respiratory 20 14 Rate Blood Pressure 142/93 [Left Arm] Pulse Ox 98 98 - Reevaluation(s) Reevaluation #1: 09/13/17 01:58 pt feels better Medical Decision Making - Lab Data Result diagrams: 09/13/17 01:15 09/13/17 01:15 Lab Results 09/13/17 Range/Units 01:15 WBC 9.1 (4.2-12.2) K/uL RBC 4.96 (3.80-5.40) M/uL Hgb 12.7 (11.6-16.0) gm/dl Hct 39.8 (35.0-47.0) % MCV 80.2 L (81-97) fl MCH 25.6 L (27-33) pg MCHC 31.9 L (32-36) g/dl RDW 15.5 H (11.5-14.5) % Plt Count 337 (130-400) K/uL MPV 9.9 (7.4-10.4) fl Gran % 63.5 (47-80) % Lymphocytes % 24.1 (16-45) % Monocytes % 7.0 (0-9) % Eosinophils % 5.2 (0-6) % Basophils % 0.2 (0-6) % Disposition Disposition: Discharge Clinical Impression: Bronchitis Disposition: Home, Self-Care Condition: (1) Good Instructions: Dyspnea (ED), Acute Bronchitis (ED) Additional Instructions: follow up with family doctor. return sooner if worse. Forms: Patient Portal Access Quality - Quality Measures Quality Measures: N/A - Blood Pressure Screening Does Patient Have Any of the Following: No Blood Pressure Classification: Pre-Hypertensive BP Reading Systolic Measurement: 123 Diastolic Measurement: 70 Screening for High Blood Pressure: < Pre-Hypertensive BP, F/U Documented > [ G8950] Pre-Hypertensive Follow-up Interventions: Follow-up with rescreen every year.
[2017-09-13 01:37] LABS: GLUCOSE,RANDOM 150 mg/dL (74-109)
[2017-09-13] MEDS ORDERED: BENZONATATE 100 MG CAPSULE PO ONE (01:59)
--- NOTE | 2017-09-13 14:53 | RADIOLOGY REPORT ---
EXAM: CHEST, TWO VIEWS HISTORY: SHORTNESS OF BREATH, CHRONIC DIFFICULTY IN BREATHING, HISTORY OF SARCOIDOSIS. TECHNIQUE: PA and lateral views of the chest were obtained. Comparison: Two view chest 01/29/16. FINDINGS: The heart size is within normal limits. Mild relative elevation of the right hemidiaphragm. Some progressive fullness of the superior mediastinum compared to the prior study suggesting mediastinal adenopathy. No obvious hilar adenopathy evident. No definite acute infiltrate is seen and no pleural effusion or pneumothorax evident. IMPRESSION: 1. PROGRESSIVE PROMINENCE OF THE SUPERIOR MEDIASTINUM COMPARED WITH 01/29/16 MAY REPRESENT PROGRESSIVE MEDIASTINAL ADENOPATHY RELATED TO THE HISTORY PROVIDED OF SARCOIDOSIS, ALTHOUGH IS NONSPECIFIC. 2. MILD ELEVATION RIGHT HEMIDIAPHRAGM. 3. NO DEFINITE ACUTE INFILTRATE SEEN. JOB NUMBER: [id number] [facility]
== END 2017-09-13 02:08 | disposition home or self-care (01) ==
LOC: ER 00:48
DX: J20.9 Acute bronchitis, unspecified (principal); R11.2 Nausea with vomiting, unspecified; K22.70 Barrett's esophagus without dysplasia; E11.9 Type 2 diabetes mellitus without complications; D86.9 Sarcoidosis, unspecified; F17.210 Nicotine dependence, cigarettes, uncomplicated
CPT/HCPCS: 71046; 80048; 83880; 85025; 85379; 94640; 96374; 99283; J2930

== ENCOUNTER 2017-09-23 17:56 | Emergency (ER) | payer MEDICAID ==
[2017-09-23 19:21] LABS: BASO % 0.2 % (0-6); EOS % 3.6 % (0-6); GRAN % 72.8 % (47-80); HEMATOCRIT 40.4 % (35.0-47.0); HEMOGLOBIN 12.7 gm/dl (11.6-16.0); MEAN CELL VOLUME 80.5 fl (81-97); MEAN CORPUSCULAR HEMOGLOBIN 25.3 pg (27-33); MEAN CORPUSCULAR HGB CONC 31.4 g/dl (32-36); MEAN PLATELET VOLUME 10.2 fl (7.4-10.4); MONO % 6.4 % (0-9); PLATELET COUNT 275 K/uL (130-400); RED BLOOD COUNT 5.02 M/uL (3.80-5.40); RED CELL DISTRIBUTION WIDTH 15.6 % (11.5-14.5)
[2017-09-23 19:32] LABS: BLOOD UREA NITROGEN 15 mg/dL (6-20); CREATININE 0.7 mg/dL (0.5-0.9); EST GLOMERULAR FILTRATION RATE > 60 mL/min
--- NOTE | 2017-09-23 19:32 | Emergency Department Record ---
History of Present Illness - General Chief complaint: Cold Stated complaint: DINO Time Seen by Provider: 09/23/17 18:52 Source: Patient Mode of Arrival: Ambulatory Limitations: No limitations - History of Present Illness Initial comments: pt has a sore throat and feels sob. she is currently being worked up for possible worsening of sarcoidosis. she also has a headache MD complaint: Sore throat -: Unknown Location: Throat Severity: Mild Consistency: Constant Improves with: None Worsens with: Eating, Swallowing Associated Symptoms: Cough, Pain with swallowing, Rhinorrhea, Sore throat - Related Data Allergies Allergy/AdvReac Type Severity Reaction Status Date / Time ibuprofen [From Motrin] AdvReac VOMITING Verified 09/23/17 18:33 Travel Screening - Travel/Exposure Within Last 30 Days Have you traveled within the last 30 days?: No - Travel/Exposure Within Last Year Have you traveled outside the [place] in the last year?: No - Additonal Travel Details Have you been exposed to anyone with a communicable illness?: No - Travel Symptoms Symptom Screening: None Review of Systems Reviewed: No additional complaints except as noted below Constitutional: Reports: As per HPI. Denies: Chills, Fever, Malaise, Night sweats, Weakness, Weight change Eyes: Reports: As per HPI. Denies: Eye discharge, Eye pain, Photophobia, Vision change ENT: Reports: As per HPI, Congestion, Throat pain. Denies: Dental pain, Ear pain, Epistaxis, Hearing loss Respiratory: Reports: As per HPI, Cough, Dyspnea. Denies: Hemoptysis, Stridor, Wheezes Cardiovascular: Reports: As per HPI. Denies: Arrhythmia, Chest pain, Dyspnea on exertion, Edema, Murmurs, Orthopnea, Palpitations, Paroxysmal nocturnal dyspnea, Rheumatic Fever, Syncope Endocrine: Reports: As per HPI. Denies: Fatigue, Heat or cold intolerance, Polydipsia, Polyuria Gastrointestinal: Reports: As per HPI. Denies: Abdominal pain, Constipation, Diarrhea, Hematemesis, Hematochezia, Melena, Nausea, Vomiting Genitourinary: Reports: As per HPI. Denies: Abnormal menses, Discharge, Dyspareunia, Dysuria, Frequency, Hematuria, Incontinence, Retention, Urgency Musculoskeletal: Reports: As per HPI. Denies: Arthralgia, Back pain, Gout, Joint swelling, Myalgia, Neck pain Skin: Reports: As per HPI. Denies: Bruising, Change in color, Change in hair/ nails, Lesions, Pruritus, Rash Neurological: Reports: As per HPI. Denies: Abnormal gait, Confusion, Headache, Numbness, Paresthesias, Seizure, Tingling, Tremors, Vertigo, Weakness Psychiatric: Reports: As per HPI. Denies: Anxiety, Auditory hallucinations, Depression, Homicidal thoughts, Suicidal thoughts, Visual hallucinations Hematological/Lymphatic: Reports: As per HPI. 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 - CARDIOVASCULAR Hx Cardio Disorders: Yes Hx Hypertension: Yes - NEURO Hx Neuro Disorders: Yes Hx Dizziness: Yes Hx Headaches: Yes Hx Seizures: Yes Comment:: concussion, Perkins Palsy - GI Hx GI Disorders: Yes Hx Reflux: Yes Hx Liver Disease: Yes ("cirrhosis") Comment:: stewart's esophagus - Hx Genitourinary Disorders: Yes Hx Bladder Problem: Yes (stress inc.) - ENDOCRINE Hx Endocrine Disorders: Yes Hx Diabetes: Yes Hx Thyroid Disease: No - MUSCULOSKELETAL Hx Musculoskeletal Disorders: Yes Hx Arthritis: Yes (osteo) Comment:: sarcoidosis - PSYCH Hx Psych Problems: Yes Hx Anxiety: Yes Hx Depression: Yes Comment:: bi polar - HEMATOLOGY/ONCOLOGY Hx Hematology/Oncology Disorders: Yes Hx Cancer: Yes (Uterine Cancer) Hx Chemotherapy: No Hx Radiation Therapy: No Family Medical History Any Significant Family History?: Yes Hx Alcohol Use: Father, Mother, Brother/Sister Hx Anxiety: Mother Hx Cancer: Grandparents Hx Depression: Father, Mother, Brother/Sister, Grandparents Hx Diabetes: Father, Grandparents Hx Heart Disease: Father Hx HTN: Father Hx Liver Disease: Father Physical Exam - General General Appearance: Alert, Oriented x3, Cooperative, Mild distress - Head Head exam: Normal inspection - Eye Eye exam: Normal appearance, PERRL, EOMI Pupils: Normal accommodation - ENT ENT exam: Normal exam, Mucous membranes moist, Normal external ear exam, Normal orophraynx, TM's normal bilaterally Ear exam: Normal external inspection. negative: External canal tenderness Nasal Exam: Normal inspection. negative: Discharge, Sinus tenderness Mouth exam: Normal external inspection, Tongue normal Teeth exam: Normal inspection. negative: Dental caries Throat exam: Tonsillar erythema. negative: Tonsillar exudate - Neck Neck exam: Normal inspection, Full ROM. negative: Tenderness - Respiratory Respiratory exam: Normal lung sounds bilaterally. negative: Respiratory distress - Cardiovascular Cardiovascular Exam: Regular rate, Normal rhythm, Normal heart sounds - GI/Abdominal GI/Abdominal exam: Soft, Normal bowel sounds. negative: Tenderness - Rectal Rectal exam: Deferred - exam: Deferred - Extremities Extremities exam: Normal inspection, Full ROM, Normal capillary refill. negative: Tenderness - Back Back exam: Reports: Normal inspection, Full ROM. Denies: Muscle spasm, Rash noted, Tenderness - Neurological Neurological exam: Alert, CN II-XII intact, Normal gait, Oriented X3 - Psychiatric Psychiatric exam: Normal affect, Normal mood - Skin Skin exam: Dry, Intact, Normal color, Warm Course Vital Signs 09/23/17 18:35 Temperature 98.5 F Pulse Rate 100 H Respiratory 20 Rate Blood Pressure 135/80 Pulse Ox 99 Medical Decision Making - Lab Data Result diagrams: 09/23/17 19:10 09/23/17 19:10 Lab Results 09/23/17 Range/Units 19:10 WBC 10.0 (4.2-12.2) K/uL RBC 5.02 (3.80-5.40) M/uL Hgb 12.7 (11.6-16.0) gm/dl Hct 40.4 (35.0-47.0) % MCV 80.5 L (81-97) fl MCH 25.3 L (27-33) pg MCHC 31.4 L (32-36) g/dl RDW 15.6 H (11.5-14.5) % Plt Count 275 (130-400) K/uL MPV 10.2 (7.4-10.4) fl Gran % 72.8 (47-80) % Lymphocytes % 17.0 (16-45) % Monocytes % 6.4 (0-9) % Eosinophils % 3.6 (0-6) % Basophils % 0.2 (0-6) % Disposition Disposition: Discharge Clinical Impression: Viral syndrome Pharyngitis Qualifiers: Pharyngitis/tonsillitis etiology: other specified organisms Qualified Code(s): J02.8 - Acute pharyngitis due to other specified organisms Disposition: Home, Self-Care Condition: (1) Good Instructions: Pharyngitis (ED), Viral Syndrome (ED) Additional Instructions: follow up with family doctor and with 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 return sooner if worse Forms: Patient Portal Access Quality - Quality Measures Quality Measures: N/A - Blood Pressure Screening Does Patient Have Any of the Following: No Blood Pressure Classification: Pre-Hypertensive BP Reading Systolic Measurement: 135 Diastolic Measurement: 80 Screening for High Blood Pressure: < Pre-Hypertensive BP, F/U Documented > [ G8950] Pre-Hypertensive Follow-up Interventions: Follow-up with rescreen every year.
[2017-09-23 19:33] LABS: TOTAL PROTEIN 7.6 g/dL (6.6-8.7)
[2017-09-23 19:35] LABS: GLUCOSE,RANDOM 118 mg/dL (74-109)
[2017-09-23 19:38] LABS: ALB/GLOB RATIO 0.9 (1.1-1.8); ALBUMIN 3.6 g/dL (4.0-5.0); ALKALINE PHOSPHATASE 129 U/L (35-104); ALT/SGPT 72 U/L (<33); AST/SGOT 59 U/L (10.0-35.0)
[2017-09-23 20:12] LABS: ERYTHROCYTE SEDIMENTATION RATE 51 mm/hr (0-30)
--- NOTE | 2017-09-26 21:16 | RADIOLOGY REPORT ---
EXAM: CHEST 2 VIEWS HISTORY: COUGH. SINUS PRESSURE. TECHNIQUE: Upright PA and lateral views of the chest. COMPARISON: Two-view chest radiographic examination dated 09/13/2017. CT chest with contrast dated 09/30/2016. FINDINGS: The heart is not enlarged. The pulmonary vasculature is nondilated. No new confluent airspace opacity is seen, nor is there costophrenic angle blunting or pneumothorax. A subtle reticulonodular pattern is again noted in each lung, stable. IMPRESSION: 1. NO EVIDENCE OF AN ACUTE INTRATHORACIC PROCESS WITHOUT CHANGE SINCE 2017. 2. MILD RETICULONODULAR OPACITY PROMINENCE AGAIN QUESTIONED IN THE LUNGS. 3. NOT MENTIONED ABOVE IS REDEMONSTRATION OF MILD LOW RIGHT PARATRACHEAL STRIPE PROMINENCE CONSISTENT WITH ADENOPATHY. THIS IS UNCHANGED OR SLIGHTLY LESS PRONOUNCED IN THE INTERVAL. JOB NUMBER: [id number] MTDD
== END 2017-09-23 21:01 | disposition home or self-care (01) ==
LOC: ER 17:56
DX: J02.8 Acute pharyngitis due to other specified organisms (principal); B34.9 Viral infection, unspecified; R51 Headache; R06.02 Shortness of breath; I10 Essential (primary) hypertension; Z87.891 Personal history of nicotine dependence
CPT/HCPCS: 71046; 80053; 83880; 85025; 85651; 87880; 99283; 99284

== ENCOUNTER 2017-11-07 13:12 | Emergency (ER) | payer MEDICAID ==
[2017-11-07 13:33] LABS: URINE APPEARANCE CLEAR; URINE BILIRUBIN NEGATIVE (NEGATIVE); URINE BLOOD NEGATIVE (NEGATIVE); URINE COLOR YELLOW; URINE GLUCOSE (UA) NEGATIVE (NEGATIVE); URINE KETONE NEGATIVE (NEGATIVE); URINE LEUKOCYTE ESTERASE NEGATIVE (NEGATIVE); URINE NITRITE NEGATIVE (NEGATIVE); URINE PROTEIN NEGATIVE (NEGATIVE); URINE UROBILINOGEN 0.2 E.U./dL (0.20 - 1.00)
[2017-11-07 14:47] LABS: BASO % 0.2 % (0-6); EOS % 4.1 % (0-6); GRAN % 70.3 % (47-80); HEMATOCRIT 38.8 % (35.0-47.0); HEMOGLOBIN 12.4 gm/dl (11.6-16.0); MEAN CELL VOLUME 79.7 fl (81-97); MEAN CORPUSCULAR HEMOGLOBIN 25.5 pg (27-33); MEAN PLATELET VOLUME 10.1 fl (7.4-10.4); MONO % 5.4 % (0-9); PLATELET COUNT 284 K/uL (130-400); RED BLOOD COUNT 4.87 M/uL (3.80-5.40); RED CELL DISTRIBUTION WIDTH 15.2 % (11.5-14.5); WHITE BLOOD COUNT W/O DIFF 9.1 K/uL (4.2-12.2)
[2017-11-07 15:02] LABS: BLOOD UREA NITROGEN 13 mg/dL (6-20); CREATININE 0.7 mg/dL (0.5-0.9); EST GLOMERULAR FILTRATION RATE > 60 mL/min
[2017-11-07 15:03] LABS: TOTAL PROTEIN 7.5 g/dL (6.6-8.7)
[2017-11-07 15:05] LABS: GLUCOSE,RANDOM 158 mg/dL (74-109)
[2017-11-07 15:07] LABS: ALBUMIN 3.7 g/dL (4.0-5.0); ALT/SGPT 60 U/L (<33); AST/SGOT 39 U/L (10.0-35.0)
[2017-11-07 15:08] LABS: ALKALINE PHOSPHATASE 126 U/L (35-104)
[2017-11-07 15:35] LABS: ERYTHROCYTE SEDIMENTATION RATE 37 mm/hr (0-30)
--- NOTE | 2017-11-07 16:07 | Emergency Department Record ---
History of Present Illness - General Chief complaint: Female Urogenital Problem Stated complaint: URINARY TRACT INFECTION Time Seen by Provider: 11/07/17 14:07 Source: Patient Mode of Arrival: Ambulatory Limitations: No limitations - History of Present Illness Initial comments: pt thinks she has a uti. she has freq and urgency. she also has confusion which she states happens when she has a uti.. she also has decreased hearing in her l ear and feels like when she had mastoiditis. she had mastoiditis before and was on cipro and had tubes. she has been better and is scheduled to see dr dudley on . but now her ear is full again Onset/Timin -: Week(s) Consistency: Constant Improves with: None Worsens with: Urination Patient : No Associated Symptoms: Dysuria - Related Data Sexually active: No Previous Rx's Medication Instructions Recorded Ciprofloxacin HCl [Cipro] 500 mg PO Q12HR #20 tablet 11/07/17 Allergies Allergy/AdvReac Type Severity Reaction Status Date / Time ibuprofen [From Motrin] AdvReac VOMITING Verified 09/23/17 18:33 Travel Screening - Travel/Exposure Within Last 30 Days Have you traveled within the last 30 days?: No Review of Systems Reviewed: No additional complaints except as noted below Constitutional: Reports: As per HPI. Denies: Chills, Fever, Malaise, Night sweats, Weakness, Weight change Eyes: Reports: As per HPI. Denies: Eye discharge, Eye pain, Photophobia, Vision change ENT: Reports: As per HPI. Denies: Congestion, Dental pain, Ear pain, Epistaxis , Hearing loss, Throat pain Respiratory: Reports: As per HPI. Denies: Cough, Dyspnea, Hemoptysis, Stridor, Wheezes Cardiovascular: Reports: As per HPI. Denies: Arrhythmia, Chest pain, Dyspnea on exertion, Edema, Murmurs, Orthopnea, Palpitations, Paroxysmal nocturnal dyspnea, Rheumatic Fever, Syncope Endocrine: Reports: As per HPI. Denies: Fatigue, Heat or cold intolerance, Polydipsia, Polyuria Gastrointestinal: Reports: As per HPI. Denies: Abdominal pain, Constipation, Diarrhea, Hematemesis, Hematochezia, Melena, Nausea, Vomiting Genitourinary: Reports: As per HPI. Denies: Abnormal menses, Discharge, Dyspareunia, Dysuria, Frequency, Hematuria, Incontinence, Retention, Urgency Musculoskeletal: Reports: As per HPI. Denies: Arthralgia, Back pain, Gout, Joint swelling, Myalgia, Neck pain Skin: Reports: As per HPI. Denies: Bruising, Change in color, Change in hair/ nails, Lesions, Pruritus, Rash Neurological: Reports: As per HPI. Denies: Abnormal gait, Confusion, Headache, Numbness, Paresthesias, Seizure, Tingling, Tremors, Vertigo, Weakness Psychiatric: Reports: As per HPI. Denies: Anxiety, Auditory hallucinations, Depression, Homicidal thoughts, Suicidal thoughts, Visual hallucinations Hematological/Lymphatic: Reports: As per HPI. 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 - CARDIOVASCULAR Hx Cardio Disorders: Yes Hx Hypertension: Yes - NEURO Hx Neuro Disorders: Yes Hx Dizziness: Yes Hx Headaches: Yes Hx Seizures: Yes Comment:: concussion, Keeler Palsy - GI Hx GI Disorders: Yes Hx Reflux: Yes Hx Liver Disease: Yes ("cirrhosis") Comment:: stewart's esophagus - Hx Genitourinary Disorders: Yes Hx Bladder Problem: Yes (stress inc.) - ENDOCRINE Hx Endocrine Disorders: Yes Hx Diabetes: Yes Hx Thyroid Disease: No - MUSCULOSKELETAL Hx Musculoskeletal Disorders: Yes Hx Arthritis: Yes (osteo) Comment:: sarcoidosis - PSYCH Hx Psych Problems: Yes Hx Anxiety: Yes Hx Depression: Yes Comment:: bi polar - HEMATOLOGY/ONCOLOGY Hx Hematology/Oncology Disorders: Yes Hx Cancer: Yes (Uterine Cancer) Hx Chemotherapy: No Hx Radiation Therapy: No Family Medical History Any Significant Family History?: Yes Hx Alcohol Use: Father, Mother, Brother/Sister Hx Anxiety: Mother Hx Cancer: Grandparents Hx Depression: Father, Mother, Brother/Sister, Grandparents Hx Diabetes: Father, Grandparents Hx Heart Disease: Father Hx HTN: Father Hx Liver Disease: Father Physical Exam - General General Appearance: Alert, Oriented x3, Cooperative, Mild distress - Head Head exam: Normal inspection - Eye Eye exam: Normal appearance, PERRL, EOMI Pupils: Normal accommodation - ENT ENT exam: Normal exam, Mucous membranes moist, Normal external ear exam, Normal orophraynx, TM's normal bilaterally Ear exam: Normal external inspection. negative: External canal tenderness Nasal Exam: Normal inspection. negative: Discharge, Sinus tenderness Mouth exam: Normal external inspection, Tongue normal Teeth exam: Normal inspection. negative: Dental caries Throat exam: Normal inspection. negative: Tonsillar erythema, Tonsillar exudate - Neck Neck exam: Normal inspection, Full ROM. negative: Tenderness - Respiratory Respiratory exam: Normal lung sounds bilaterally. negative: Respiratory distress - Cardiovascular Cardiovascular Exam: Regular rate, Normal rhythm, Normal heart sounds - GI/Abdominal GI/Abdominal exam: Soft, Normal bowel sounds. negative: Tenderness - Rectal Rectal exam: Deferred - exam: Deferred - Extremities Extremities exam: Normal inspection, Full ROM, Normal capillary refill. negative: Tenderness - Back Back exam: Reports: Normal inspection, Full ROM. Denies: Muscle spasm, Rash noted, Tenderness - Neurological Neurological exam: Alert, CN II-XII intact, Normal gait, Oriented X3 - Psychiatric Psychiatric exam: Normal affect, Normal mood - Skin Skin exam: Dry, Intact, Normal color, Warm Course Vital Signs 11/07/17 13:20 Temperature 98.5 F Pulse Rate 98 H Respiratory 20 Rate Blood Pressure 121/80 Pulse Ox 97 Medical Decision Making - Lab Data Result diagrams: 11/07/17 14:35 11/07/17 14:35 Lab Results 11/07/17 11/07/17 11/07/17 Range/Units 13:15 14:35 14:35 WBC 9.1 (4.2-12.2) K/uL RBC 4.87 (3.80-5.40) M/uL Hgb 12.4 (11.6-16.0) gm/dl Hct 38.8 (35.0-47.0) % MCV 79.7 L (81-97) fl MCH 25.5 L (27-33) pg MCHC 32.0 (32-36) g/dl RDW 15.2 H (11.5-14.5) % Plt Count 284 (130-400) K/uL MPV 10.1 (7.4-10.4) fl Gran % 70.3 (47-80) % Lymphocytes % 20.0 (16-45) % Monocytes % 5.4 (0-9) % Eosinophils % 4.1 (0-6) % Basophils % 0.2 (0-6) % ESR 37 H (0-30) mm/hr Sodium 139 (136-145) mmol/L Potassium 3.8 (3.4-4.5) mmol/L Chloride 101 (98-107) mmol/L Carbon Dioxide 24.0 (22-29) mmol/L Anion Gap 14.0 (7-16) BUN 13 (6-20) mg/dL Creatinine 0.7 (0.5-0.9) mg/dL Estimated GFR > 60 mL/min Random Glucose 158 H (74-109) mg/dL Calcium 9.1 (8.6-10.0) mg/dL Total Bilirubin 0.40 (0.2-1.0) mg/dL AST 39 H (10.0-35.0) U/L ALT 60 H (<33) U/L Alkaline Phosphatase 126 H (35-104) U/L Total Protein 7.5 (6.6-8.7) g/dL Albumin 3.7 L (4.0-5.0) g/dL Globulin 3.8 (1.4-4.8) gm/dL Albumin/Globulin Ratio 1.0 L (1.1-1.8) Urine Color Yellow Urine Appearance Clear Urine pH 6.0 (5.0-8.0) Ur Specific [place] >= 1.030 (1.002-1.030) Urine Protein Negative (NEGATIVE) Urine Glucose (UA) Negative (NEGATIVE) Urine Ketones Negative (NEGATIVE) Urine Blood Negative (NEGATIVE) Urine Nitrite Negative (NEGATIVE) Urine Bilirubin Negative (NEGATIVE) Urine Urobilinogen 0.2 (0.20 - 1.00) E.U./dL Ur Leukocyte Esterase Negative (NEGATIVE) Disposition Disposition: Discharge Clinical Impression: Elevated liver enzymes Mastoiditis Qualifiers: Laterality: left Qualified Code(s): H70.92 - Unspecified mastoiditis, left ear Otitis media Qualifiers: Otitis media type: other nonsuppurative Chronicity: acute Laterality: left Recurrence: recurrent Qualified Code(s): H65.195 - Other acute nonsuppurative otitis media, recurrent, left ear Disposition: Home, Self-Care Condition: (1) Good Instructions: Mastoiditis (ED), Otitis Media (ED) Additional Instructions: follow up with dr dudley and [facility] return sooner if worse Prescriptions: Ciprofloxacin HCl [Cipro] 500 mg PO Q12HR #20 tablet Quality - Quality Measures Quality Measures: N/A - Blood Pressure Screening Does Patient Have Any of the Following: No Blood Pressure Classification: Pre-Hypertensive BP Reading Systolic Measurement: 121 Diastolic Measurement: 80 Screening for High Blood Pressure: < Pre-Hypertensive BP, F/U Documented > [ G8950] Pre-Hypertensive Follow-up Interventions: Follow-up with rescreen every year.
--- NOTE | 2017-11-09 09:50 | CT SCAN REPORT ---
EXAM: CT SCAN OF THE BRAIN WITHOUT CONTRAST HISTORY: CONFUSION AND VISUAL CHANGES. TECHNIQUE: Standard CT imaging of the brain was performed without contrast. Comparison: 09/28/15. FINDINGS: The ventricles and subarachnoid spaces are normal. There is no mass , mass effect, intracranial hemorrhage, visible acute infarct, or abnormal extraaxial fluid. There is no skull fracture. There is nonspecific fluid within the left mastoid air cells and middle ear cavity. The appearance suggests developing otitis media and mastoiditis. The right middle ear cavity and mastoid air cells are clear. The orbits and sinuses are unremarkable. IMPRESSION: 1. NO ACUTE INTRACRANIAL ABNORMALITY. 2. FLUID IS PRESENT WITHIN THE LEFT MIDDLE EAR CAVITY AND MASTOID AIR CELLS SUGGESTING DEVELOPING OTITIS MEDIA AND MASTOIDITIS. CORRELATE WITH THE CLINICAL FINDINGS. JOB NUMBER: [id number] MTDD
== END 2017-11-07 16:23 | disposition home or self-care (01) ==
LOC: ER 13:12
DX: R94.5 Abnormal results of liver function studies (principal); H65.195 Other acute nonsuppurative otitis media, recurrent, left ear; H70.92 Unspecified mastoiditis, left ear; F44.89 Other dissociative and conversion disorders; R30.0 Dysuria; I10 Essential (primary) hypertension; Z87.890 Personal history of sex reassignment
CPT/HCPCS: 70450; 80053; 81003; 85025; 85651; 99283; 99284

== ENCOUNTER 2018-03-27 14:22 | Emergency (ER) | payer MEDICAID ==
[2018-03-27] MEDS ORDERED: ORPHENADRINE CITRATE 60MG/2ML VIAL IM ONE (15:03)
[2018-03-27] MEDS ORDERED: KETOROLAC 30 MG/ML VIAL IM ONE (15:03)
--- NOTE | 2018-03-27 16:17 | Emergency Department Record ---
History of Present Illness - General Chief Complaint: Back Pain/Injury Stated Complaint: BACK PAIN Time Seen by Provider: 03/27/18 14:43 Source: Patient Mode of Arrival: Ambulatory Limitations: No limitations - History of Present Illness Initial Comments: pt lifted several heavy things the last day and felt her back pop. she has pain in her r lower back/buttock w radiation down her right leg w some numbness. she has no problem with her bowel or bladder MD Complaint: Back pain, Back injury Onset/Timin -: Days(s) Similar Symptoms Previously: Yes Place: Home Severity: Moderate Severity scale (1-10): 9 Quality: Aching Improves With: None Worsens With: Movement, Walking Context: Bending, Turning/twisting, While lifting - Related Data Home Medications Medication Instructions Recorded Confirmed Last Taken Calcium Carb/Mag Ox/Zinc Sulf 1 each PO TID 03/27/18 03/27/18 1 Day Ago [[id number] Tablet] ~03/26/18 Fluticasone Propionate [Flonase] 2 spray EACH NARES DAILY 03/27/18 03/27/18 1 Day Ago ~03/26/18 Loratadine 10 mg PO DAILY 03/27/18 03/27/18 1 Day Ago ~03/26/18 Melatonin 3 mg PO QHS 03/27/18 03/27/18 1 Day Ago ~03/26/18 Modafinil [Provigil] 200 mg PO DAILY 03/27/18 03/27/18 1 Day Ago ~03/26/18 Pseudoephedrine HCl [Sudafed 12 120 mg PO DAILY 03/27/18 03/27/18 1 Day Ago Hour] ~03/26/18 Previous Rx's Medication Instructions Recorded Cyclobenzaprine HCl [Flexeril] 10 mg PO TID #14 tablet 03/27/18 Allergies Allergy/AdvReac Type Severity Reaction Status Date / Time liraglutide [From Victoza] Allergy Severe NAUSEA AND Verified 03/27/18 14:35 VOMITING metformin Allergy Severe DIARRHEA Verified 03/27/18 14:35 ibuprofen [From Motrin] AdvReac VOMITING Verified 03/27/18 14:35 Travel Screening - Travel/Exposure Within Last 30 Days Have you traveled within the last 30 days?: No - Travel/Exposure Within Last Year Have you traveled outside the [place] in the last year?: No - Additonal Travel Details Have you been exposed to anyone with a communicable illness?: No - Travel Symptoms Symptom Screening: None Review of Systems Reviewed: No additional complaints except as noted below Constitutional: Reports: As per HPI. Denies: Chills, Fever, Malaise, Night sweats, Weakness, Weight change Eyes: Reports: As per HPI. Denies: Eye discharge, Eye pain, Photophobia, Vision change ENT: Reports: As per HPI. Denies: Congestion, Dental pain, Ear pain, Epistaxis , Hearing loss, Throat pain Respiratory: Reports: As per HPI. Denies: Cough, Dyspnea, Hemoptysis, Stridor, Wheezes Cardiovascular: Reports: As per HPI. Denies: Arrhythmia, Chest pain, Dyspnea on exertion, Edema, Murmurs, Orthopnea, Palpitations, Paroxysmal nocturnal dyspnea, Rheumatic Fever, Syncope Endocrine: Reports: As per HPI. Denies: Fatigue, Heat or cold intolerance, Polydipsia, Polyuria Gastrointestinal: Reports: As per HPI. Denies: Abdominal pain, Constipation, Diarrhea, Hematemesis, Hematochezia, Melena, Nausea, Vomiting Genitourinary: Reports: As per HPI. Denies: Abnormal menses, Discharge, Dyspareunia, Dysuria, Frequency, Hematuria, Incontinence, Retention, Urgency Musculoskeletal: Reports: As per HPI. Denies: Arthralgia, Back pain, Gout, Joint swelling, Myalgia, Neck pain Skin: Reports: As per HPI. Denies: Bruising, Change in color, Change in hair/ nails, Lesions, Pruritus, Rash Neurological: Reports: As per HPI. Denies: Abnormal gait, Confusion, Headache, Numbness, Paresthesias, Seizure, Tingling, Tremors, Vertigo, Weakness Psychiatric: Reports: As per HPI. Denies: Anxiety, Auditory hallucinations, Depression, Homicidal thoughts, Suicidal thoughts, Visual hallucinations Hematological/Lymphatic: Reports: As per HPI. 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 - CARDIOVASCULAR Hx Cardio Disorders: Yes Hx Hypertension: Yes - NEURO Hx Neuro Disorders: Yes Hx Dizziness: Yes Hx Headaches: Yes Hx Seizures: Yes Comment:: concussion, [place] Palsy - GI Hx GI Disorders: Yes Hx Reflux: Yes Hx Liver Disease: Yes ("cirrhosis") Comment:: stewart's esophagus...gone now - Hx Genitourinary Disorders: Yes Hx Bladder Problem: Yes (stress inc.) - ENDOCRINE Hx Endocrine Disorders: Yes Hx Diabetes: Yes Hx Thyroid Disease: No - MUSCULOSKELETAL Hx Musculoskeletal Disorders: Yes Hx Arthritis: Yes (osteo) Comment:: sarcoidosis - PSYCH Hx Psych Problems: Yes Hx Anxiety: Yes Hx Depression: Yes Comment:: bi polar - HEMATOLOGY/ONCOLOGY Hx Hematology/Oncology Disorders: Yes Hx Cancer: Yes (Uterine Cancer) Hx Chemotherapy: No Hx Radiation Therapy: No Family Medical History Any Significant Family History?: Yes Hx Alcohol Use: Father, Mother, Brother/Sister Hx Anxiety: Mother Hx Cancer: Grandparents Hx Depression: Father, Mother, Brother/Sister, Grandparents Hx Diabetes: Father, Grandparents Hx Heart Disease: Father Hx HTN: Father Hx Liver Disease: Father Physical Exam - General General Appearance: Alert, Oriented x3, Cooperative, Mild distress - Head Head exam: Normal inspection - Eye Eye exam: Normal appearance, PERRL, EOMI Pupils: Normal accommodation - ENT ENT exam: Normal exam, Mucous membranes moist, Normal external ear exam, Normal orophraynx Ear exam: Normal external inspection. negative: External canal tenderness Nasal Exam: Normal inspection. negative: Discharge, Sinus tenderness Mouth exam: Normal external inspection, Tongue normal Teeth exam: Normal inspection. negative: Dental caries Throat exam: Normal inspection. negative: Tonsillar erythema, Tonsillar exudate - Neck Neck exam: Normal inspection, Full ROM. negative: Tenderness - Respiratory Respiratory exam: Normal lung sounds bilaterally. negative: Respiratory distress - Cardiovascular Cardiovascular Exam: Regular rate, Normal rhythm, Normal heart sounds - GI/Abdominal GI/Abdominal exam: Soft, Normal bowel sounds. negative: Tenderness - Rectal Rectal exam: Deferred - exam: Deferred - Extremities Extremities exam: Normal inspection, Full ROM, Normal capillary refill. negative: Tenderness - Back Back exam: Reports: Muscle spasm, Tenderness. Denies: Full ROM, Rash noted - Neurological Neurological exam: Alert, CN II-XII intact, Normal gait, Oriented X3 - Psychiatric Psychiatric exam: Normal affect, Normal mood - Skin Skin exam: Dry, Intact, Normal color, Warm Course Vital Signs 03/27/18 03/27/18 14:24 16:08 Temperature 98.3 F Pulse Rate 104 H Pulse Rate [ 76 Pulse Ox Probe] Respiratory 18 18 Rate Blood Pressure 141/90 Blood Pressure 118/74 [Left Arm] Pulse Ox 98 100 - Reevaluation(s) Reevaluation #1: 03/27/18 16:14 pt feels better Disposition Disposition: Discharge Clinical Impression: Sciatica Qualifiers: Laterality: right Qualified Code(s): M54.31 - Sciatica, right side Disposition: Home, Self-Care Condition: (1) Good Instructions: Sciatica (ED) Additional Instructions: follow up with family doctor. return sooner if worse. no lifting more then 5 lbs for 5 days. ice to back every 4 hours for 2 days Prescriptions: Cyclobenzaprine HCl [Flexeril] 10 mg PO TID #14 tablet Quality - Quality Measures Quality Measures: N/A - Blood Pressure Screening Does Patient Have Any of the Following: Active Dx of HTN Blood Pressure Classification: Hypertensive Reading Systolic Measurement: 141 Diastolic Measurement: 90 Screening for High Blood Pressure: Patient Exclusion, Hx of HTN [G9744]
== END 2018-03-27 16:28 | disposition home or self-care (01) ==
LOC: ER 14:22
DX: S39.012A Strain of muscle, fascia and tendon of lower back, initial encounter (principal); X50.0XXA Overexertion from strenuous movement or load, initial encounter; M54.31 Sciatica, right side; I10 Essential (primary) hypertension; Z87.891 Personal history of nicotine dependence
CPT/HCPCS: 99282 ×2; 96372; J1885; J2360

== ENCOUNTER 2018-07-28 14:10 | Emergency (ER) | payer MEDICAID ==
[2018-07-28] MEDS ORDERED: SUCRALFATE 1 G/10 ML UD PO ONE (14:41)
--- NOTE | 2018-07-28 14:45 | Emergency Department Record ---
History of Present Illness - General Chief Complaint: Abdominal Pain Stated Complaint: UPPER ABD PAIN Time Seen by Provider: 07/28/18 14:32 Source: Patient Mode of Arrival: Ambulatory Limitations: No limitations - History of Present Illness Initial Comments: The patient is here due to upper AP for the last 3 weeks. Initially it was only at night and now it is constant. It is not associated with eating or movement and also not associated with nausea, vomiting, diarrhea, fever, or dysuria. The patient has no hx of similar issues and her only abdominal surgery is a JAKE. Additionally she denies any CP, SOB, DINO, sweating or any CP with exertion. MD Complaint: Abdominal pain Onset/Timin -: Week(s) Location: Diffuse Severity: Moderate Severity scale (1-10): 6 Quality: Sharp Consistency: Constant Improves With: Nothing Worsens With: Nothing Associated Symptoms: Denies other symptoms - Related Data Patient : No Previous Rx's Medication Instructions Recorded Sucralfate [Carafate] 1 gm PO QID #28 tablet 07/28/18 Allergies Allergy/AdvReac Type Severity Reaction Status Date / Time liraglutide [From Victoza] Allergy Severe NAUSEA AND Verified 03/27/18 14:35 VOMITING metformin Allergy Severe DIARRHEA Verified 03/27/18 14:35 dapagliflozin [From Farxiga] AdvReac BODY ACHES Verified 07/28/18 14:18 empagliflozin AdvReac BODY ACHES Verified 07/28/18 14:18 [From Jardiance] ibuprofen [From Motrin] AdvReac VOMITING Verified 03/27/18 14:35 Travel Screening - Travel/Exposure Within Last 30 Days Have you traveled within the last 30 days?: No - Travel/Exposure Within Last Year Have you traveled outside the [place] 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 - CARDIOVASCULAR Hx Cardio Disorders: Yes Hx Hypertension: Yes - NEURO Hx Neuro Disorders: Yes Hx Dizziness: Yes Hx Headaches: Yes Hx Seizures: Yes Comment:: concussion, [place] Palsy - GI Hx GI Disorders: Yes Hx Reflux: Yes Hx Liver Disease: Yes ("cirrhosis") Comment:: stewart's esophagus...gone now - Hx Genitourinary Disorders: Yes Hx Bladder Problem: Yes (stress inc.) - ENDOCRINE Hx Endocrine Disorders: Yes Hx Diabetes: Yes Hx Thyroid Disease: No - MUSCULOSKELETAL Hx Musculoskeletal Disorders: Yes Hx Arthritis: Yes (osteo) Comment:: sarcoidosis - PSYCH Hx Psych Problems: Yes Hx Anxiety: Yes Hx Depression: Yes Comment:: bi polar - HEMATOLOGY/ONCOLOGY Hx Hematology/Oncology Disorders: Yes Hx Cancer: Yes (Uterine Cancer) Hx Chemotherapy: No Hx Radiation Therapy: No Family Medical History Any Significant Family History?: Yes Hx Alcohol Use: Father, Mother, Brother/Sister Hx Anxiety: Mother Hx Cancer: Grandparents Hx Depression: Father, Mother, Brother/Sister, Grandparents Hx Diabetes: Father, Grandparents Hx Heart Disease: Father Hx HTN: Father Hx Liver Disease: Father Physical Exam - General General Appearance: Alert, Oriented x3, Cooperative - Head Head exam: Atraumatic, Normocephalic, Normal inspection - Eye Eye exam: Normal appearance, PERRL - ENT Throat exam: Normal inspection. negative: Tonsillar erythema, Tonsillar exudate - Neck Neck exam: Normal inspection, Full ROM. negative: Tenderness - Respiratory Respiratory exam: Normal lung sounds bilaterally. negative: Respiratory distress - Cardiovascular Cardiovascular Exam: Regular rate, Normal rhythm, Normal heart sounds - GI/Abdominal GI/Abdominal exam: Soft, Normal bowel sounds. negative: Distended, Guarding, Rebound, Rigid, Tenderness - Extremities Extremities exam: Normal inspection, Full ROM, Normal capillary refill. negative: Tenderness - Neurological Neurological exam: Alert, Normal gait, Oriented X3. negative: Abnormal gait, Mo tor sensory deficit Course Vital Signs 07/28/18 14:23 Temperature 98.6 F Pulse Rate 66 Respiratory 20 Rate Pulse Ox 98 - Reevaluation(s) Reevaluation #1: The patient is doing better at this time. She states the pain is much improved with the Carafate. I did discuss the neg lab work with her and the normal UA also. We are still waiting on the CT result. 07/28/18 15:46 Reevaluation #2: The patient is doing better at this time. I did discuss the CT results at length with her and she does have an appointment with her PCP in 8 days. She is to take the Carafate and keep that appointment. Presently she is basically pain free and has no abdominal tenderness. 07/28/18 16:01 Medical Decision Making - Data Complexity MDM Data: Labs Ordered and/or Reviewed, X-Ray Ordered and/or Reviewed - Lab Data Result diagrams: 07/28/18 14:56 07/28/18 14:56 - Radiology Data Radiology results: Report reviewed (Abd CT: Multiple mildly enlarged lymph nodes in the portocaval and celiac axis, slightly bigger than in 2015, O/W neg per Rad.) Disposition Disposition: Discharge Clinical Impression: Abdominal pain Qualifiers: Abdominal location: unspecified location Qualified Code(s): R10.9 - Unspecified abdominal pain Disposition: Home, Self-Care Condition: (2) Stable Instructions: Abdominal Pain (ED) Additional Instructions: Please continue your regular medicines and please take the carafate as directed. Please keep your appointment with Dr. Stewart for next week and return to the ER for any worsening symptoms. Prescriptions: Sucralfate [Carafate] 1 gm PO QID #28 tablet Forms: Patient Portal Access Time of Disposition: 15:59 Quality - Quality Measures Quality Measures: N/A - Blood Pressure Screening View Details: Yes Does Patient Have Any of the Following: No Blood Pressure Classification: Pre-Hypertensive BP Reading Systolic Measurement: 120 Diastolic Measurement: 68 Screening for High Blood Pressure: < Pre-Hypertensive BP, F/U Documented > [G8950] Pre-Hypertensive Follow-up Interventions: Referral to alternative/primary care provider.
[2018-07-28 15:02] LABS: ABSOLUTE NEUTROPHIL COUNT 4.97; BASO % 0.2 % (0-6); EOS % 4.8 % (0-6); GRAN % 61.3 % (47-80); HEMATOCRIT 41.7 % (35.0-47.0); HEMOGLOBIN 13.5 gm/dl (11.6-16.0); LYMPH % 27.5 % (16-45); MEAN CORPUSCULAR HEMOGLOBIN 26.2 pg (27-33); MEAN CORPUSCULAR HGB CONC 32.4 g/dl (32-36); MEAN PLATELET VOLUME 10.1 fl (7.4-10.4); MONO % 6.2 % (0-9); PLATELET COUNT 302 K/uL (130-400); RED BLOOD COUNT 5.15 M/uL (3.80-5.40); RED CELL DISTRIBUTION WIDTH 15.1 % (11.5-14.5); WHITE BLOOD COUNT W/O DIFF 8.1 K/uL (4.2-12.2)
[2018-07-28 15:03] LABS: URINE APPEARANCE CLEAR; URINE BILIRUBIN NEGATIVE (NEGATIVE); URINE BLOOD NEGATIVE (NEGATIVE); URINE COLOR YELLOW; URINE GLUCOSE (UA) NEGATIVE (NEGATIVE); URINE KETONE NEGATIVE (NEGATIVE); URINE LEUKOCYTE ESTERASE NEGATIVE (NEGATIVE); URINE NITRITE NEGATIVE (NEGATIVE); URINE PROTEIN NEGATIVE (NEGATIVE); URINE UROBILINOGEN 0.2 E.U./dL (0.20 - 1.00)
[2018-07-28 15:18] LABS: BLOOD UREA NITROGEN 18 mg/dL (6-20); CREATININE 0.7 mg/dL (0.5-0.9); EST GLOMERULAR FILTRATION RATE > 60 mL/min
[2018-07-28 15:19] LABS: LIPASE 36 U/L (13-60); TOTAL PROTEIN 7.9 g/dL (6.6-8.7)
[2018-07-28 15:21] LABS: GLUCOSE,RANDOM 144 mg/dL (74-109)
[2018-07-28 15:23] LABS: ALT/SGPT 64 U/L (<33); AST/SGOT 48 U/L (10.0-35.0)
[2018-07-28 15:24] LABS: ALBUMIN 4.1 g/dL (4.0-5.0); ALKALINE PHOSPHATASE 135 U/L (35-104); BILIRUBIN,DIRECT < 0.2 mg/dL (0-0.3)
--- NOTE | 2018-07-29 14:58 | CT SCAN REPORT ---
EXAM: CT SCAN OF THE ABDOMEN AND PELVIS WITHOUT CONTRAST HISTORY: UPPER ABDOMINAL AND MID ABDOMINAL PAIN FOR THE PAST THREE WEEKS. TECHNIQUE: Standard CT imaging of the abdomen and pelvis was performed without contrast. Additional coronal and sagittal reformatted images were also performed. Comparison: 09/17/14. FINDINGS: Noncalcified nodules at the lung bases are unchanged. The lung bases are otherwise clear. The liver, gallbladder, biliary tree, pancreas, spleen, and adrenal glands are normal. The kidneys and ureters are unremarkable. The aorta is normal in caliber. There are mildly enlarged lymph nodes within the celiac access and portal caval regions. These have increased in size from the previous examination. A 1.4 x 2.3 cm portal caval lymph node is present. This previously measured 0.9 x 1.6 cm. Multiple additional mildly enlarged lymph nodes are present. The etiology of this lymphadenopathy is uncertain. Additional scattered nonenlarged paraaortic and mesenteric lymph nodes are present. The large and small bowel loops are normal. The appendix is surgically absent. There is no pneumoperitoneum or ascites. The uterus is surgically absent. The urinary bladder is unremarkable. The anterior abdominal wall appears within normal limits. Degenerative changes are present within the spine. No osteoblastic or osteolytic process is identified. IMPRESSION: 1. NO ACUTE INTRAABDOMINAL PATHOLOGY. 2. THERE ARE MULTIPLE MILDLY ENLARGED LYMPH NODES WITHIN THE PORTAL CAVAL AND CELIAC ACCESS REGIONS. THE LARGEST MEASURES 1.4 X 2.3 CM. THESE LYMPH NODES HAVE INCREASED IN SIZE WHEN COMPARED TO THE 2015 EXAMINATION. 3. STABLE NONCALCIFIED NODULES AT THE LUNG BASES. 4. STATUS POST HYSTERECTOMY AND APPENDECTOMY. JOB NUMBER: [id number] MTDD
== END 2018-07-28 16:07 | disposition home or self-care (01) ==
LOC: ER 14:10
DX: R10.10 Upper abdominal pain, unspecified (principal); E11.9 Type 2 diabetes mellitus without complications; I10 Essential (primary) hypertension; Z87.891 Personal history of nicotine dependence
CPT/HCPCS: 74176; 80048; 80076; 81003; 83690; 85025; 99283; 99284